=== PATIENT | male | born 1960 | race African-American/Black ===

== ENCOUNTER 2021-05-28 04:34 | Day surgery (SDC) | payer BC ==
[2021-05-22 17:09] VITALS: BMI 24.0
[2021-05-28 10:21] VITALS: BP 129/80; PULSE 92; TEMP 98
== END 2021-05-28 10:48 | disposition home or self-care (01) ==
LOC: JASU-ENDO 04:34
PROVIDERS: ATTEND Internal Medicine Gastroenterology
PROC: 0DBN8ZX Excision of Sigmoid Colon, Via Natural or Artificial Opening Endoscopic, Diagnostic (ICD-10-PCS; principal; 2021-05-28 09:00)
DX: Z12.11 Encounter for screening for malignant neoplasm of colon (principal); Z86.010 Personal history of colon polyps; D12.5 Benign neoplasm of sigmoid colon; K57.30 Diverticulosis of large intestine without perforation or abscess without bleeding; K64.8 Other hemorrhoids

== ENCOUNTER 2023-01-28 05:12 | Day surgery (SDC) | payer BC ==
[2023-01-26 13:04] VITALS: BMI 23.8
[2023-01-28 12:05] VITALS: TEMP 97.3
[2023-01-28 12:51] VITALS: BP 124/65; PULSE 67; RESP 17
== END 2023-01-28 13:00 | disposition home or self-care (01) ==
LOC: JASU-ENDO 05:12
PROVIDERS: ATTEND Internal Medicine Gastroenterology
PROC: 0DB98ZX Excision of Duodenum, Via Natural or Artificial Opening Endoscopic, Diagnostic (ICD-10-PCS; 2023-01-28)
PROC: 0DB68ZX Excision of Stomach, Via Natural or Artificial Opening Endoscopic, Diagnostic (ICD-10-PCS; 2023-01-28)
PROC: 0DJD8ZZ Inspection of Lower Intestinal Tract, Via Natural or Artificial Opening Endoscopic (ICD-10-PCS; principal; 2023-01-28 12:30)
DX: Z12.11 Encounter for screening for malignant neoplasm of colon (principal); K21.00 Gastro-esophageal reflux disease with esophagitis, without bleeding; K29.50 Unspecified chronic gastritis without bleeding; B96.81 Helicobacter pylori [H. pylori] as the cause of diseases classified elsewhere; K64.8 Other hemorrhoids; D64.9 Anemia, unspecified; R63.4 Abnormal weight loss; Z86.010 Personal history of colon polyps
CPT/HCPCS: 88305-TC; 88341-TC; 88342-TC